=== PATIENT | female | born 1990 | race Caucasian/White ===

== ENCOUNTER 2022-11-30 11:45 | Emergency (ER) | payer MEDICAID ==
[~2022-11-30] VITALS: Ht 170.2 cm; Wt 62.6 kg
--- NOTE | 2022-11-30 12:13 | NUR ---
BIBS C/O RIGHT ANKLE PAIN 2 HOURS AGO S/P "TWISTED IT WHILE WALKING."
[2022-11-30 13:22] VITALS: BP 102/73
--- NOTE | 2022-11-30 13:22 | NUR ---
Patient discharged to home in stable condition. Written and verbal after care instructions given. Patient verbalizes understanding of instruction.
== END 2022-11-30 13:23 | disposition home or self-care (01) ==
LOC: ER 11:50
DX: S93.401A Sprain of unspecified ligament of right ankle, initial encounter (principal); Z60.2 Problems related to living alone; X37.1XXA Tornado, initial encounter; Y93.89 Activity, other specified; Y92.89 Other specified places as the place of occurrence of the external cause; Y99.8 Other external cause status
CPT/HCPCS: 73610-TC